=== PATIENT | female | born 1975 | race Caucasian/White ===

== ENCOUNTER 2021-05-21 08:00 | Inpatient (IN) | payer OTHER ==
[~2021-05-21] VITALS: Ht 165.1 cm; Wt 119.3 kg
[2021-05-21 09:27] LABS: BASOPHILS % (AUTO) 1.1 % (0.0-5.0); EOSINOPHILS % (AUTO) 1.8 % (0.0-8.0); LYMPHOCYTES % (AUTO) 31.6 % (21.0-51.0); MEAN CORPUSCULAR HEMOGLOBIN 19.6 pg (27.0-33.0); MEAN CORPUSCULAR HGB CONC 29.4 g/dL (32.0-36.0); MEAN CORPUSCULAR VOLUME 66.5 fL (79-99); MONOCYTES % (AUTO) 7.7 % (3.0-13.0); NEUTROPHILS % (AUTO) 57.4 % (40.0-77.0); PLATELET COUNT (AUTO) 550 K/uL (130-400); RED BLOOD CELL COUNT(AUTO) 4.96 MIL/uL (4.00-5.50); RED CELL DISTRIBUTION WIDTH 16.1 % (11.0-15.5); WHITE BLOOD COUNT (AUTO) 7.8 K/uL (4.8-10.8)
[2021-05-22 13:02] VITALS: BP 128/73
[2021-05-22] MEDS ORDERED: LEVO137C4 PO (13:44)
[2021-05-22] MEDS ORDERED: FOLI0.8T3 PO (13:44)
[2021-05-22] MEDS ORDERED: NIFE30TA5 PO (13:44)
[2021-05-22] MEDS ORDERED: CETI10CA5 PO (13:44)
[2021-05-22] MEDS ORDERED: DOCU-116 PO (13:44)
[2021-05-22] MEDS ORDERED: VITAD50000 PO (13:44)
[2021-05-22] MEDS ORDERED: FERR324T4 PO (13:44)
[2021-05-23] VITALS (21 sets, daily range): BP systolic 116–159; BP diastolic 54–89
[2021-05-23] MEDS ORDERED: CEFAZOLIN SODIUM 1 GM VIAL ONE (08:19)
[2021-05-23] MEDS ORDERED: CALDOLOR 800MG+NS 250ML 250 ML IV ONE (08:20)
[2021-05-23] MEDS ORDERED: MORPHINE PF 100MG/10ML AMP IV ONE (08:42)
[2021-05-23] MEDS ORDERED: LIDOCAINE PF 100MG/5ML (2%) SYRINGE 5ML ONE (08:49)
[2021-05-23] MEDS ORDERED: MIDAZOLAM HCL 1 MG/ML 2ML VIAL ONE (08:50)
[2021-05-23] MEDS ORDERED: ROCURONIUM 10MG/1ML SYR 10 MG/ML ML ONE (08:50)
[2021-05-23] MEDS ORDERED: PROPOFOL 10 MG/ML 20ML VIAL IV ONE (08:50)
[2021-05-23] MEDS ORDERED: FENTANYL CITRATE PF 50 MCG/1 ML 2ML VIAL ONE (08:50)
[2021-05-23] MEDS ORDERED: CEFAZOLIN SODIUM 3 GM in 0.9%NACL 100ML 100 ML IVP SCH (09:00)
[2021-05-23] MEDS: LACTATED RINGERS 1000ML 1,000 ML IV SCH ×4 (09:55→11:23)
[2021-05-23] MEDS ORDERED: ONDANSETRON 4MG INJ ONE ×2 (10:58→11:44)
[2021-05-23] MEDS ORDERED: GLYCOPYRROLATE 1 MG/5 ML SYRINGE ONE (10:58)
[2021-05-23] MEDS ORDERED: NEOSTIGMINE 5MG/5ML SYR IV ONE (10:58)
[2021-05-23] MEDS ORDERED: ACETAMINOPHEN WITH CODEINE 1 TAB TAB PO PRN ×2 (11:30)
[2021-05-23] MEDS ORDERED: BISACODYL 10 MG SUPP.RECT RC PRN (11:30)
[2021-05-23] MEDS ORDERED: HYDROCODONE/ACETAMINOPHEN 5/325 MG TAB PO PRN (11:30)
[2021-05-23] MEDS ORDERED: PROMETHAZINE HCL 25 MG/ML 1ML AMPULE IM PRN ×2 (11:30)
[2021-05-23] MEDS ORDERED: ONDANSETRON 4MG INJ IVP PRN (11:30)
[2021-05-23] MEDS ORDERED: MEPERIDINE-PF 75 MG/ML SYG IM PRN ×2 (11:30→13:00)
[2021-05-23] MEDS ORDERED: MEPERIDINE-PF 25 MG/ML SYG ONE (11:44)
[2021-05-23] MEDS: DEXTROSE 5 %-0.45 % NACL 1,000 ML IV PRN (17:04)
[2021-05-23] MEDS: CALDOLOR 800MG+NS 250ML 250 ML IV SCH (19:38)
[2021-05-23] MEDS ORDERED: FLU VACC QS2021-22(6MOS UP)/PF 60 MCG/0.5 ML ML IM ONE (21:00)
[2021-05-23] MEDS: DOCUSATE SODIUM 100 MG CAP PO PRN (21:19)
[2021-05-23] MEDS: SIMETHICONE 80 MG TAB.CHEW PO PRN (21:19)
[2021-05-24] MEDS: DEXTROSE 5 %-0.45 % NACL 1,000 ML IV PRN (01:08)
[2021-05-24] MEDS: CALDOLOR 800MG+NS 250ML 250 ML IV SCH (03:13)
[2021-05-24 03:57] VITALS: BP 102/58
[2021-05-24 06:42] LABS: HEMATOCRIT 23.8 % (36-48); MEAN CORPUSCULAR HEMOGLOBIN 19.4 pg (27.0-33.0); MEAN CORPUSCULAR HGB CONC 28.6 g/dL (32.0-36.0); RED BLOOD CELL COUNT(AUTO) 3.5 MIL/uL (4.00-5.50); RED CELL DISTRIBUTION WIDTH 15.9 % (11.0-15.5); WHITE BLOOD COUNT (AUTO) 14.8 K/uL (4.8-10.8)
[2021-05-24 08:00] VITALS: BP 107/67
[2021-05-24] MEDS: SIMETHICONE 80 MG TAB.CHEW PO PRN (08:40)
[2021-05-24] MEDS: DOCUSATE SODIUM 100 MG CAP PO PRN (08:40)
[2021-05-24] MEDS ORDERED: LIDOCAINE 5% TOPICAL PATCH TP SCH (09:00)
[2021-05-24] MEDS ORDERED: IBUPROFEN 800 MG TAB PO SCH (11:30)
[2021-05-24 11:32] VITALS: BP 100/41
== END 2021-05-24 15:15 | disposition home or self-care (01) | DRG 742 ==
LOC: EDSTATUS 08:00 → EDUNIT# 08:00 → DAHIP 05-23 06:46 → WSH 05-23 12:30
PROVIDERS: ADMIT Obstetrics & Gynecology; ATTEND Obstetrics & Gynecology
PROC: 3E02340 Introduction of Influenza Vaccine into Muscle, Percutaneous Approach (ICD-10-PCS; 2021-05-23)
PROC: 0UTC0ZZ Resection of Cervix, Open Approach (ICD-10-PCS; 2021-05-23)
PROC: 0UT90ZZ Resection of Uterus, Open Approach (ICD-10-PCS; principal; 2021-05-23 09:18)
PROC: 0TNB0ZZ Release Bladder, Open Approach (ICD-10-PCS; 2021-05-23 09:18)
DX: D25.9 Leiomyoma of uterus, unspecified (principal); Z68.41 Body mass index [BMI] 40.0-44.9, adult; N92.0 Excessive and frequent menstruation with regular cycle; D50.9 Iron deficiency anemia, unspecified; E03.9 Hypothyroidism, unspecified; Z20.822 Contact with and (suspected) exposure to COVID-19; E66.01 Morbid (severe) obesity due to excess calories; N73.6 Female pelvic peritoneal adhesions (postinfective); Z23 Encounter for immunization; Z83.3 Family history of diabetes mellitus; Z82.49 Family history of ischemic heart disease and other diseases of the circulatory system; Z80.0 Family history of malignant neoplasm of digestive organs
CPT/HCPCS: 36415; 84703; 85025; 85027; 86850; 86900; 86901; 87635; G0378; J0690; J1741; J2001; J2175; J2250; J2274; J2405; J2550; J2704; J2710; J3010; J3490; J7120; Q2035